=== PATIENT | female | born 1970 | race African-American/Black ===

== ENCOUNTER 2017-09-04 08:00 | Emergency (ER) | payer OTHER ==
[~2017-09-04] VITALS: Ht 170.2 cm; Wt 72.6 kg
[~2017-09-04 08:00] MED LIST: FLEXERIL PO; HYDROCODONE-AP1 EAC6 PO; IBUPROFEN 800800 M1 PO
[2017-09-04] MEDS ORDERED: LISINOPRIL10 MG PO (08:09)
[2017-09-04 09:18] LABS: ABSOLUTE BASOPHILS 0.1 thou/uL (0.0-0.2); ABSOLUTE LYMPHOCYTES 0.5 thou/uL (0.8-5.3); ABSOLUTE MONOCYTES 0.4 thou/uL (0.0-1.2); ABSOLUTE NEUTROPHILS 2.9 thou/uL (1.6-8.1); BASOPHILS 1.6 %; EOSINOPHILS 0.4 %; HEMATOCRIT 43.6 % (37.0-47.0); HEMOGLOBIN 15.1 gm/dL (12.0-15.0); LYMPHOCYTES 13.6 %; MCH 32.3 pg (26.0-34.0); MCHC 34.7 g/dL (28.0-37.0); MCV 93.1 fL (80.0-100.0); MONOCYTES 9.4 %; MPV 9.1 fl. (7.2-11.1); NUCLEATED RBCS 0 /100WBC; PLATELET COUNT* 137 thou/uL (150-400); RBC 4.68 mil/uL (4.20-5.00); RDW-CV 13.7 % (10.5-14.5); WBC 3.9 thou/uL (4.0-11.0)
[2017-09-04 09:25] LABS: ALBUMIN 4.2 g/dL (3.4-5.0); ALKALINE PHOSPHATASE 102 U/L (46-116); ANION GAP 18 mmol/L (7-16); BUN 12 mg/dL (7-18); CALCIUM 8.6 mg/dL (8.5-10.1); CHLORIDE 97 mmol/L (98-107); CO2 23 mmol/L (21-32); CREATININE 0.9 mg/dL (0.6-1.3); GLUCOSE 82 mg/dL (70-99); SGOT 163 U/L (15-37); SGPT 101 U/L (30-65); SODIUM 138 mmol/L (136-145); TOTAL BILIRUBIN 0.9 mg/dL (<0.1-1.0); TROPONIN-I LEVEL <0.06 ng/mL (<0.06)
[2017-09-04] MEDS ORDERED: PROPRANOLOL 1010 MG PO (10:13)
[2017-09-04 10:37] VITALS: BP 117/82
--- NOTE | 2017-09-05 14:09 | EKG ---
[place] [address] ELECTROCARDIOGRAM REPORT Name: KENYON العلي Room: [facility]#: [id number] Admission: 09/04/17 Attend Phys: Discharge: 09/04/17 Date of : 70 Report #: [id number] THIS REPORT FOR: //name// [facility] ED Test Date: 2017-09-04 Test Time: 08:06:46 Pat Name: KENYON BENITEZAPER Department: Room: Gender: F Line Up Examiner: Yuniel MUNOZ : 1970 Requested By: Caroline Gallegos Order Number: [id number] MD: Bart Cárdenas Measurements Intervals [place] Rate: 103 P: 75 WI: 147 QRS: 47 QRSD: 79 T: 25 QT: 328 QTc: 430 Interpretive Statements Sinus tachycardia No previous ECG available for comparison Electronically Signed On 09-05-2017 14:09:17 [employer] by Bart Cárdenas [email or web address] <ELECTRONICALLY SIGNED> By: Bart Cárdenas MD, [facility] 09/05/17 [id number] 5 Bart Cárdenas MD, FACC /EPI
== END 2017-09-04 10:38 | disposition home or self-care (01) ==
LOC: M.ERS 08:00
PROVIDERS: Personal Emergency Response Attendant
DX: R00.2 Palpitations (principal); I10 Essential (primary) hypertension